=== PATIENT | female | born 1965 | race Two or more races ===

== ENCOUNTER 2019-10-14 10:30 | Inpatient (IN) | payer MEDICAID ==
[~2019-10-14] VITALS: Ht 170.2 cm; Wt 100.1 kg
[~2019-10-14 10:30] MED LIST: ALBU108A5 IN; ASPI81CH43 PO; ATOR20TA50 PO; CAR3125T PO; DIVA1TAB58 PO; FAM20T PO; IPRIH INH; PRED20TA2 PO; QUET100T46 PO
[2019-10-14] MEDS ORDERED: IPRATROPIUM BROM 0.5 MG/2.5ML INH SOL HHN ONE (11:00)
[2019-10-14] MEDS ORDERED: ALBUTEROL SULF 2.5 MG/0.5ML(0.5%) NEB SOLN HHN ONE (11:00)
[2019-10-14] MEDS ORDERED: methylPREDNISolone SOD SUCC 125 MG/2 ML VL IV ONE (11:00)
[2019-10-14 11:08] LABS: Basophils # (auto) 0 10 ^3/uL (0-0.2); Basophils % (auto) 0.3 % (0.0-2.0); Eosinophils # (auto) 0 10 ^3/uL (0-0.8); Eosinophils % (auto) 0.2 % (0.0-7.0); Hematocrit 45.8 % (36.0-46.0); Hemoglobin 14.7 g/dL (12.2-16.2); Lymphocytes # (auto) 4.9 10 ^3/uL (0.4-5.4); Lymphocytes % (auto) 36.7 % (10.0-50.0); Mean Corpuscular Hemoglobin 27.7 pg (28.0-32.0); Mean Corpuscular Hgb Conc. 32.1 g/dL (32.0-36.0); Mean Corpuscular Volume 86.3 fL (80.0-100.0); Monocytes % (auto) 7.6 % (0.0-12.0); Neutrophils # (auto) 7.4 10 ^3/uL (1.6-8.6); Neutrophils % (auto) 55.2 % (37.0-80.0); Nucleated Red Blood Cells % 0.1 %; Platelet Count (auto) 221 10^3/uL (140-450); Red Blood Cells 5.31 10^6/uL (4.0-5.20); Red Cell Distribution Width 14.6 % (11.8-14.3); White Blood Cell 13.4 10^3/uL (4.4-10.8)
[2019-10-14 11:19] LABS: Urine WBC None Seen /hpf (0 - 5)
[2019-10-14 11:42] LABS: Urine Bacteria FEW /hpf (None Seen); Urine Blood Negative /uL (Negative); Urine Specific Gravity 1.031 (1.001-1.035)
[2019-10-14 11:51] LABS: Albumin 3.6 g/dL (3.4-5.0); Anion Gap 14 (5-15); Blood Urea Nitrogen 23 mg/dL (7-18); Calcium 8.8 mg/dL (8.5-10.1); Carbon Dioxide 19 mmol/L (21-32); Chloride 92 mmol/L (98-107); Potassium 4.8 mmol/L (3.5-5.1); Sodium 125 mmol/L (136-145)
[2019-10-14 12:01] LABS: Alanine Aminotransferase 42 U/L (13-56); Alkaline Phosphatase 71 U/L (45-117); Aspartate Aminotransferase 18 U/L (15-37); Bilirubin, Total 0.7 mg/dL (0.2-1.0); GFR African American 48 mL/min; GFR Non-African American 40 mL/min; Total Protein 7.3 g/dL (6.4-8.2)
[2019-10-14 12:17] LABS: Glucose 827 mg/dL (74-106)
[2019-10-14] MEDS ORDERED: InsuLIN R (HUMAN) 100 UNITS in SODIUM CHL 0.9% 99 ML IV SCH (12:26)
[2019-10-14] MEDS ORDERED: InsuLIN REG 1unit/0.01ml Soln (100units/ml) IV ONE ×2 (12:30→14:45)
[2019-10-14] MEDS ORDERED: DEXTROSE (50%) 50ML SYRG IV PRN ×2 (12:30→15:15)
[2019-10-14] MEDS: ACCU-CHEK COMFORT CURVE STRIP VI SCH ×4 (13:16→21:53)
[2019-10-14] MEDS ORDERED: NITROGLYCERIN 0.4 MG SL TAB SL PRN (14:15)
[2019-10-14] MEDS ORDERED: MORPHINE SULF INJ 2 MG/ML SYRINGE 1ML IV PRN (14:15)
[2019-10-14] MEDS ORDERED: DOXYCYCLINE 100MG/250ML 250 ML IV SCH (15:15)
[2019-10-14] MEDS ORDERED: ACETAMINOPHEN 500 MG TAB PO PRN (15:15)
[2019-10-14] MEDS ORDERED: INSULIN LANTUS (GLARGINE) 1 /0.01ml (100units/ml) SC ONE (15:15)
[2019-10-14] MEDS ORDERED: ALBUTEROL SULF 2.5 MG/0.5ML(0.5%) NEB SOLN NEB PRN (15:15)
[2019-10-14] MEDS ORDERED: PROMETHAZINE HCL 25 MG/ML 1ML IV PRN (15:15)
[2019-10-14] MEDS ORDERED: LACTULOSE 20Gm/30ML SOLN PO PRN (15:15)
[2019-10-14] MEDS: SODIUM CHLORIDE 0.9% 1,000 ML IV SCH (15:37)
[2019-10-14] MEDS: methylPREDNISolone SOD SUCC 40 MG/ML VL IV SCH (15:49)
[2019-10-14 16:38] LABS: Amylase 18 U/L (25-115); Lipase 83 U/L (73-393)
[2019-10-14] MEDS: InsuLIN REG 1unit/0.01ml Soln (100units/ml) SC SCH ×2 (16:42→22:04)
[2019-10-14] MEDS: IPRATROPIUM BROM 0.5 MG/2.5ML INH SOL NEB SCH (18:24)
[2019-10-14] MEDS: ALBUTEROL SULF 2.5 MG/0.5ML(0.5%) NEB SOLN NEB SCH (18:25)
[2019-10-14 18:51] VITALS: BP 115/73
[2019-10-14 22:00] VITALS: BP 118/56
[2019-10-14] MEDS: FAMOTIDINE 20 MG TAB PO SCH (22:00)
[2019-10-14] MEDS: DOXYCYCLINE 100 MG TAB/CAP PO SCH (22:05)
[2019-10-14] MEDS: INSULIN LANTUS (GLARGINE) 1 /0.01ml (100units/ml) SC SCH (22:05)
[2019-10-14 22:41] VITALS: BP 118/79
[2019-10-15] MEDS: ACCU-CHEK COMFORT CURVE STRIP VI SCH ×6 (00:02→21:26)
[2019-10-15] MEDS: InsuLIN REG 1unit/0.01ml Soln (100units/ml) SC SCH ×6 (00:03→21:34)
[2019-10-15] MEDS: traMADol HCL 50 MG TAB PO PRN ×2 (00:03→21:30)
[2019-10-15] MEDS: TEMAZEPAM 15 MG CAP PO PRN ×2 (00:03→21:29)
[2019-10-15] MEDS: ALBUTEROL SULF 2.5 MG/0.5ML(0.5%) NEB SOLN NEB SCH ×4 (00:16→19:53)
[2019-10-15] MEDS: IPRATROPIUM BROM 0.5 MG/2.5ML INH SOL NEB SCH ×4 (00:16→19:53)
[2019-10-15] MEDS: methylPREDNISolone SOD SUCC 40 MG/ML VL IV SCH ×2 (03:30→16:32)
[2019-10-15] MEDS: SODIUM CHLORIDE 0.9% 1,000 ML IV SCH ×3 (03:30→21:10)
[2019-10-15 05:00] VITALS: BP 121/74
[2019-10-15] MEDS: INSULIN LANTUS (GLARGINE) 1 /0.01ml (100units/ml) SC SCH ×2 (05:58→22:34)
[2019-10-15 09:00] VITALS: BP 148/76
[2019-10-15] MEDS: DOXYCYCLINE 100 MG TAB/CAP PO SCH ×2 (09:02→21:27)
[2019-10-15] MEDS: ENOXAPARIN SOD 40 MG/0.4 ML SYRINGE SC SCH (09:03)
[2019-10-15] MEDS: FAMOTIDINE 20 MG TAB PO SCH ×2 (09:03→21:26)
[2019-10-15 11:30] LABS: Basophils # (auto) 0 10 ^3/uL (0-0.2); Basophils % (auto) 0.1 % (0.0-2.0); Eosinophils # (auto) 0 10 ^3/uL (0-0.8); Hematocrit 41.8 % (36.0-46.0); Hemoglobin 13.5 g/dL (12.2-16.2); Lymphocytes # (auto) 1.7 10 ^3/uL (0.4-5.4); Lymphocytes % (auto) 9.4 % (10.0-50.0); Mean Corpuscular Hemoglobin 27.1 pg (28.0-32.0); Mean Corpuscular Hgb Conc. 32.3 g/dL (32.0-36.0); Mean Corpuscular Volume 84.1 fL (80.0-100.0); Monocytes # (auto) 0.7 10 ^3/uL (0-1.3); Monocytes % (auto) 3.7 % (0.0-12.0); Neutrophils # (auto) 15.5 10 ^3/uL (1.6-8.6); Neutrophils % (auto) 86.8 % (37.0-80.0); Platelet Count (auto) 220 10^3/uL (140-450); Red Blood Cells 4.97 10^6/uL (4.0-5.20); Red Cell Distribution Width 14.5 % (11.8-14.3); White Blood Cell 17.8 10^3/uL (4.4-10.8)
[2019-10-15 13:00] VITALS: BP 134/75
[2019-10-15 20:00] VITALS: BP 133/82
[2019-10-15 22:00] VITALS: BP 133/82
[2019-10-16] MEDS: ACCU-CHEK COMFORT CURVE STRIP VI SCH ×7 (00:42→23:55)
[2019-10-16] MEDS: InsuLIN REG 1unit/0.01ml Soln (100units/ml) SC SCH ×7 (00:43→23:55)
[2019-10-16] MEDS: IPRATROPIUM BROM 0.5 MG/2.5ML INH SOL NEB SCH ×4 (00:51→19:08)
[2019-10-16] MEDS: ALBUTEROL SULF 2.5 MG/0.5ML(0.5%) NEB SOLN NEB SCH ×4 (00:51→19:08)
[2019-10-16] MEDS: methylPREDNISolone SOD SUCC 40 MG/ML VL IV SCH ×2 (03:35→15:40)
[2019-10-16 05:00] VITALS: BP 131/76
[2019-10-16 05:48] LABS: Basophils # (auto) 0 10 ^3/uL (0-0.2); Basophils % (auto) 0.2 % (0.0-2.0); Eosinophils # (auto) 0 10 ^3/uL (0-0.8); Hematocrit 38.8 % (36.0-46.0); Hemoglobin 12.5 g/dL (12.2-16.2); Lymphocytes # (auto) 3.9 10 ^3/uL (0.4-5.4); Lymphocytes % (auto) 24.1 % (10.0-50.0); Mean Corpuscular Hemoglobin 27.3 pg (28.0-32.0); Mean Corpuscular Hgb Conc. 32.1 g/dL (32.0-36.0); Mean Corpuscular Volume 85.1 fL (80.0-100.0); Monocytes # (auto) 0.9 10 ^3/uL (0-1.3); Monocytes % (auto) 5.9 % (0.0-12.0); Neutrophils # (auto) 11.3 10 ^3/uL (1.6-8.6); Neutrophils % (auto) 69.8 % (37.0-80.0); Nucleated Red Blood Cells % 0.1 %; Platelet Count (auto) 180 10^3/uL (140-450); Red Blood Cells 4.56 10^6/uL (4.0-5.20); Red Cell Distribution Width 14.7 % (11.8-14.3); White Blood Cell 16.1 10^3/uL (4.4-10.8)
[2019-10-16] MEDS: INSULIN LANTUS (GLARGINE) 1 /0.01ml (100units/ml) SC SCH ×2 (06:11→22:41)
[2019-10-16 06:15] LABS: BUN/Creatinine Ratio 15.1; Calcium 8.3 mg/dL (8.5-10.1); Magnesium 2.1 mg/dL (1.6-2.6)
[2019-10-16] MEDS: SODIUM CHLORIDE 0.9% 1,000 ML IV SCH ×2 (08:25→15:42)
[2019-10-16] MEDS: traMADol HCL 50 MG TAB PO PRN (08:50)
[2019-10-16] MEDS: ENOXAPARIN SOD 40 MG/0.4 ML SYRINGE SC SCH (08:50)
[2019-10-16] MEDS: DOXYCYCLINE 100 MG TAB/CAP PO SCH ×2 (08:50→22:40)
[2019-10-16] MEDS: FAMOTIDINE 20 MG TAB PO SCH ×2 (08:50→22:00)
[2019-10-16 09:07] VITALS: BP 143/75
[2019-10-16 13:00] VITALS: BP 154/99
[2019-10-16 17:00] VITALS: BP 160/98
[2019-10-16 21:00] VITALS: BP 133/85
[2019-10-16] MEDS: TEMAZEPAM 15 MG CAP PO PRN (22:39)
[2019-10-16] MEDS ORDERED: glipiZIDE 5 MG TAB PO ONE (23:30)
[2019-10-17] MEDS: IPRATROPIUM BROM 0.5 MG/2.5ML INH SOL NEB SCH ×3 (00:42→11:48)
[2019-10-17] MEDS: ALBUTEROL SULF 2.5 MG/0.5ML(0.5%) NEB SOLN NEB SCH ×3 (00:45→11:48)
[2019-10-17] MEDS: methylPREDNISolone SOD SUCC 40 MG/ML VL IV SCH ×2 (03:50→15:15)
[2019-10-17] MEDS: InsuLIN REG 1unit/0.01ml Soln (100units/ml) SC SCH ×4 (03:50→16:00)
[2019-10-17] MEDS: SODIUM CHLORIDE 0.9% 1,000 ML IV SCH ×2 (03:51→13:10)
[2019-10-17] MEDS: ACCU-CHEK COMFORT CURVE STRIP VI SCH ×4 (03:51→16:00)
[2019-10-17 05:00] VITALS: BP 124/79
[2019-10-17] MEDS: INSULIN LANTUS (GLARGINE) 1 /0.01ml (100units/ml) SC SCH (05:48)
[2019-10-17] MEDS ORDERED: glipiZIDE 5 MG TAB PO SCH (07:00)
[2019-10-17 08:00] VITALS: BP 115/72
[2019-10-17 09:00] VITALS: BP 115/72
[2019-10-17] MEDS: FAMOTIDINE 20 MG TAB PO SCH (10:00)
[2019-10-17] MEDS ORDERED: LORazepam 2MG/ML-1ML VIAL IV ONE (10:00)
[2019-10-17 10:22] LABS: Free T4 (Free Thyroxine) 0.97 ng/dL (0.89-1.76)
[2019-10-17 10:24] LABS: Folate (Folic Acid) 21.53 ng/mL (5.38-24)
[2019-10-17] MEDS: DOXYCYCLINE 100 MG TAB/CAP PO SCH (10:32)
[2019-10-17] MEDS: ENOXAPARIN SOD 40 MG/0.4 ML SYRINGE SC SCH (10:33)
[2019-10-17 13:00] VITALS: BP 141/90
[2019-10-17 15:26] VITALS: BP 141/90
[2019-10-17 16:00] LABS: BUN/Creatinine Ratio 11.2; Calcium 8.8 mg/dL (8.5-10.1); Potassium 3.5 mmol/L (3.5-5.1)
[2019-10-17] MEDS ORDERED: QUEtiapine FUMARATE 100 MG TAB PO SCH (22:00)
== END 2019-10-17 17:19 | disposition home or self-care (01) | DRG 140 ==
LOC: ER 10:30 → TELE 10:31 → TELE-WESTW 18:18
PROVIDERS: ADMIT Internal Medicine; ATTEND Internal Medicine
DX: J44.1 Chronic obstructive pulmonary disease with (acute) exacerbation (principal); N17.0 Acute kidney failure with tubular necrosis; E11.65 Type 2 diabetes mellitus with hyperglycemia; E87.1 Hypo-osmolality and hyponatremia; R19.7 Diarrhea, unspecified; I10 Essential (primary) hypertension; I48.91 Unspecified atrial fibrillation; T38.0X5A Adverse effect of glucocorticoids and synthetic analogues, initial encounter; F31.9 Bipolar disorder, unspecified; Z82.49 Family history of ischemic heart disease and other diseases of the circulatory system; I25.2 Old myocardial infarction; Y92.89 Other specified places as the place of occurrence of the external cause
CPT/HCPCS: 36415; 71045; 72141; 80048; 80053; 81001; 82010; 82150; 82550; 82607; 82746; 82784; 82962; 83036; 83690; 83735; 83880; 84439; 84443; 84484; 85025; 85379; 86334; 86592; 87070; 87205; 93005; 94640; 96365; 96372; 96375; 99291; G0378; J1815

== ENCOUNTER 2020-07-04 10:55 | Emergency (ER) | payer MEDICAID ==
[~2020-07-04] VITALS: Ht 170.2 cm; Wt 94.3 kg
[~2020-07-04 10:55] MED LIST changes: -FAM20T PO; +FAMO20TA10 PO
[2020-07-04 11:25] LABS: Eosinophils # (auto) 0.1 10 ^3/uL (0-0.8); Lymphocytes # (auto) 3.6 10 ^3/uL (0.4-5.4); Monocytes # (auto) 0.7 10 ^3/uL (0-1.3)
[2020-07-04 11:27] LABS: Basophils # (auto) 0.1 10 ^3/uL (0-0.2); Basophils % (auto) 0.6 % (0.0-2.0); Eosinophils % (auto) 1.4 % (0.0-7.0); Hematocrit 38.6 % (36.0-46.0); Hemoglobin 12.6 g/dL (12.2-16.2); Lymphocytes % (auto) 42.3 % (10.0-50.0); Mean Corpuscular Hemoglobin 26.4 pg (28.0-32.0); Mean Corpuscular Hgb Conc. 32.7 g/dL (32.0-36.0); Mean Corpuscular Volume 80.8 fL (80.0-100.0); Monocytes % (auto) 8.2 % (0.0-12.0); Neutrophils % (auto) 47.5 % (37.0-80.0); Platelet Count (auto) 250 10^3/uL (140-450); Red Blood Cells 4.78 10^6/uL (4.0-5.20); Red Cell Distribution Width 14.4 % (11.8-14.3); White Blood Cell 8.4 10^3/uL (4.4-10.8)
[2020-07-04 11:40] LABS: Albumin 3.5 g/dL (3.4-5.0); Anion Gap 4 (5-15); Blood Urea Nitrogen 9 mg/dL (7-18); Calcium 8.5 mg/dL (8.5-10.1); Carbon Dioxide 28 mmol/L (21-32); Chloride 106 mmol/L (98-107); Glucose 103 mg/dL (74-106); Potassium 4.2 mmol/L (3.5-5.1); Sodium 138 mmol/L (136-145)
[2020-07-04 11:45] LABS: Alanine Aminotransferase 26 U/L (13-56); Alkaline Phosphatase 60 U/L (45-117); Aspartate Aminotransferase 15 U/L (15-37); BUN/Creatinine Ratio 11.4; Bilirubin, Total 0.3 mg/dL (0.2-1.0); GFR African American 96 mL/min; GFR Non-African American 80 mL/min; Total Protein 7.7 g/dL (6.4-8.2)
[2020-07-04] MEDS: ASPirin 81 mg TAB PO ONE (12:00)
[2020-07-04 13:07] LABS: INR 1.03 (0.9-1.15); Partial Thromboplastin Time 27.6 sec (23.0-31.2)
[2020-07-04 16:05] VITALS: BP 132/72
== END 2020-07-04 16:11 | disposition left against medical advice (07) ==
LOC: ER 10:55
DX: R07.2 Precordial pain (principal); R00.2 Palpitations; J44.9 Chronic obstructive pulmonary disease, unspecified; E11.9 Type 2 diabetes mellitus without complications; I10 Essential (primary) hypertension; I25.2 Old myocardial infarction; Z79.899 Other long term (current) drug therapy; Z79.82 Long term (current) use of aspirin
CPT/HCPCS: 36415; 71046; 80053; 83735; 83880; 84443; 84484; 85025; 85379; 85610; 85730; 93005

== ENCOUNTER 2020-11-01 11:08 | Inpatient (IN) | payer MEDICAID ==
[~2020-11-01] VITALS: Ht 170.2 cm; Wt 92.1 kg
[~2020-11-01 11:08] MED LIST changes: -QUET100T46 PO; +QUET100T47 PO
[2020-11-01] MEDS ORDERED: SODIUM CHLORIDE 0.9% 500 ML IV ONE (11:30)
[2020-11-01] MEDS ORDERED: ONDANSETRON HCL 4 MG/2 ML VIAL IV ONE (11:30)
[2020-11-01 12:16] LABS: Basophils # (auto) 0.1 10 ^3/uL (0-0.2); Basophils % (auto) 0.7 % (0.0-2.0); Eosinophils # (auto) 0 10 ^3/uL (0-0.8); Eosinophils % (auto) 0.5 % (0.0-7.0); Hematocrit 40.5 % (36.0-46.0); Hemoglobin 13.5 g/dL (12.2-16.2); Lymphocytes # (auto) 3.1 10 ^3/uL (0.4-5.4); Lymphocytes % (auto) 36.5 % (10.0-50.0); Mean Corpuscular Hemoglobin 27.1 pg (28.0-32.0); Mean Corpuscular Hgb Conc. 33.3 g/dL (32.0-36.0); Mean Corpuscular Volume 81.4 fL (80.0-100.0); Monocytes # (auto) 0.6 10 ^3/uL (0-1.3); Monocytes % (auto) 7.1 % (0.0-12.0); Neutrophils # (auto) 4.7 10 ^3/uL (1.6-8.6); Neutrophils % (auto) 55.2 % (37.0-80.0); Nucleated Red Blood Cells % 0.1 %; Red Blood Cells 4.98 10^6/uL (4.0-5.20); Red Cell Distribution Width 14.9 % (11.8-14.3); White Blood Cell 8.6 10^3/uL (4.4-10.8)
[2020-11-01 12:25] LABS: Anion Gap 8 (5-15); Blood Urea Nitrogen 10 mg/dL (7-18); Carbon Dioxide 24 mmol/L (21-32); Chloride 106 mmol/L (98-107); Glucose 128 mg/dL (74-106); Magnesium 2.1 mg/dL (1.6-2.6); Sodium 138 mmol/L (136-145)
[2020-11-01 12:34] LABS: Alanine Aminotransferase 34 U/L (13-56); Alkaline Phosphatase 66 U/L (45-117); Aspartate Aminotransferase 21 U/L (15-37); BUN/Creatinine Ratio 11.6; Bilirubin, Total 0.4 mg/dL (0.2-1.0); GFR African American 87 mL/min; GFR Non-African American 72 mL/min; Total Protein 8.1 g/dL (6.4-8.2)
[2020-11-01 13:07] LABS: Urine Bacteria FEW /hpf (None Seen); Urine Blood Negative /uL (Negative); Urine Specific Gravity 1.011 (1.001-1.035); Urine WBC 3 /hpf (0 - 5)
[2020-11-01] MEDS ORDERED: ONDANSETRON HCL 4 MG/2 ML VIAL IV PRN (13:30)
[2020-11-01] MEDS ORDERED: ACETAMINOPHEN 325 MG TAB PO PRN (13:30)
[2020-11-01] MEDS ORDERED: NITROGLYCERIN 0.4 MG SL TAB SL PRN (13:30)
[2020-11-01] MEDS ORDERED: HYDROcodone-ACET 5/325MG TAB PO PRN (13:30)
[2020-11-01] MEDS ORDERED: MORPHINE SULFATE INJECTION 2 MG/ML SYRG IV PRN (13:30)
[2020-11-01] MEDS ORDERED: METF-370 PO (16:15)
[2020-11-01] MEDS ORDERED: HYDR-4072 PO (16:15)
[2020-11-01] MEDS ORDERED: diazePAM 2 MG TAB PO PRN (16:15)
[2020-11-01 17:00] VITALS: BP 156/92
[2020-11-01] MEDS: MORPHINE SULFATE INJECTION 2 MG/ML SYRG IV PRN (18:18)
[2020-11-01 20:37] VITALS: BP 145/91
[2020-11-01] MEDS: CARVEDILOL 3.125 MG TAB PO SCH (21:20)
[2020-11-01] MEDS: FAMOTIDINE 20 MG TAB PO SCH (21:22)
[2020-11-01] MEDS ORDERED: ATORVASTATIN 20 MG TAB PO SCH (22:00)
[2020-11-01] MEDS ORDERED: QUEtiapine FUMARATE 100 MG TAB PO SCH (22:00)
[2020-11-02 04:36] VITALS: BP 104/60
[2020-11-02] MEDS: FAMOTIDINE 20 MG TAB PO SCH (08:43)
[2020-11-02] MEDS: CARVEDILOL 3.125 MG TAB PO SCH (08:44)
[2020-11-02 09:00] VITALS: BP 121/77
[2020-11-02] MEDS ORDERED: ASPirin 81 mg TAB PO SCH (10:00)
[2020-11-02] MEDS: MORPHINE SULFATE INJECTION 2 MG/ML SYRG IV PRN (16:29)
[2020-11-02 17:17] VITALS: BP 147/98
[2020-11-02 18:05] VITALS: BP 147/98
== END 2020-11-02 18:35 | disposition home or self-care (01) | DRG 111 ==
LOC: ER 11:08 → TELE 13:20 → TELE-EAST 15:42
PROVIDERS: ADMIT Internal Medicine; ATTEND Internal Medicine
DX: H81.10 Benign paroxysmal vertigo, unspecified ear (principal); E11.9 Type 2 diabetes mellitus without complications; H81.20 Vestibular neuronitis, unspecified ear; F31.9 Bipolar disorder, unspecified; I25.10 Atherosclerotic heart disease of native coronary artery without angina pectoris; I10 Essential (primary) hypertension; Z20.822 Contact with and (suspected) exposure to COVID-19; E78.5 Hyperlipidemia, unspecified; E66.9 Obesity, unspecified; F12.90 Cannabis use, unspecified, uncomplicated; R00.2 Palpitations; J44.9 Chronic obstructive pulmonary disease, unspecified; R07.89 Other chest pain; T50.Z95A Adverse effect of other vaccines and biological substances, initial encounter; Z82.49 Family history of ischemic heart disease and other diseases of the circulatory system; Z68.31 Body mass index [BMI] 31.0-31.9, adult; Z86.73 Personal history of transient ischemic attack (TIA), and cerebral infarction without residual deficits; Y92.89 Other specified places as the place of occurrence of the external cause
CPT/HCPCS: 36415; 70450; 70551; 71046; 80053; 81001; 83735; 84484; 85025; 85049; 85379; 87426; 93005; 93306; 96361; 96374; 96375; 99291; G0378; J2405

== ENCOUNTER → 2020-12-07 | Outpatient (CLI) | payer MEDICAID ==
[~2020-12-07] MED LIST changes: +HYDR-4072 PO; +METF-370 PO; +QUET100T46 PO; -QUET100T47 PO
[2020-12-07 14:16] LABS: Urine Bacteria FEW /hpf (None Seen); Urine Blood Negative /uL (Negative); Urine Specific Gravity 1.014 (1.001-1.035); Urine WBC 1 /hpf (0 - 5)
[2020-12-07 14:24] LABS: BUN/Creatinine Ratio 14.7; Potassium 4.4 mmol/L (3.5-5.1)
== END | disposition home or self-care (01) ==
LOC: LAB 13:47
PROVIDERS: ATTEND Internal Medicine
DX: I10 Essential (primary) hypertension (principal); E11.42 Type 2 diabetes mellitus with diabetic polyneuropathy
CPT/HCPCS: 36415; 80048; 81001; 82043; 82306; 83036

== ENCOUNTER → 2022-06-19 | Outpatient (CLI) | payer MEDICAID ==
[~2022-06-19] MED LIST changes: -QUET100T46 PO; +QUET100T47 PO
[2022-06-19 09:31] LABS: Basophils # (auto) 0 10 ^3/uL (0-0.2); Basophils % (auto) 0.4 % (0.0-2.0); Eosinophils # (auto) 0.2 10 ^3/uL (0-0.8); Red Cell Distribution Width 14.5 % (11.8-14.3); White Blood Cell 10.1 10^3/uL (4.4-10.8)
[2022-06-19 09:32] LABS: Eosinophils % (auto) 1.6 % (0.0-7.0); Hematocrit 39.4 % (36.0-46.0); Hemoglobin 13.1 g/dL (12.2-16.2); Lymphocytes # (auto) 4.6 10 ^3/uL (0.4-5.4); Lymphocytes % (auto) 45.1 % (10.0-50.0); Mean Corpuscular Hgb Conc. 33.3 g/dL (32.0-36.0); Monocytes # (auto) 0.7 10 ^3/uL (0-1.3); Monocytes % (auto) 6.9 % (0.0-12.0); Neutrophils # (auto) 4.7 10 ^3/uL (1.6-8.6); Nucleated Red Blood Cells % 0.1 %; Red Blood Cells 4.87 10^6/uL (4.0-5.20)
[2022-06-19 09:35] LABS: Urine Bacteria FEW /hpf (None Seen); Urine Blood Negative /uL (Negative); Urine Specific Gravity 1.016 (1.001-1.035); Urine WBC <1 /hpf (0 - 5)
[2022-06-19 10:36] LABS: Albumin 3.6 g/dL (3.4-5.0); Potassium 4.2 mmol/L (3.5-5.1)
[2022-06-19 10:46] LABS: BUN/Creatinine Ratio 14.6; Bilirubin, Total 0.3 mg/dL (0.2-1.0); Calcium 8.9 mg/dL (8.5-10.1); Total Protein 7.5 g/dL (6.4-8.2)
== END | disposition home or self-care (01) ==
LOC: LAB 09:14
PROVIDERS: ATTEND Internal Medicine
DX: E11.22 Type 2 diabetes mellitus with diabetic chronic kidney disease (principal); N18.9 Chronic kidney disease, unspecified
CPT/HCPCS: 36415; 80053; 80061; 81001; 82043; 82306; 82607; 83036; 84443; 85025

== ENCOUNTER → 2022-06-20 | Outpatient (CLI) | payer MEDICAID | END | disposition home or self-care (01) | LOC: LAB 13:38 | PROVIDERS: ATTEND Internal Medicine | DX: E11.22 Type 2 diabetes mellitus with diabetic chronic kidney disease (principal); N18.9 Chronic kidney disease, unspecified | CPT/HCPCS: 82274 ==

== ENCOUNTER 2024-01-04 06:30 | Emergency (ER) | payer MEDICAID ==
[~2024-01-04] VITALS: Ht 170.2 cm; Wt 88.1 kg
[~2024-01-04 06:30] MED LIST changes: -CAR3125T PO; +CARV-214 PO
[2024-01-04] MEDS ORDERED: PRED15SO33 PO (07:02)
[2024-01-04] MEDS ORDERED: AUG875T PO (07:02)
[2024-01-04 07:26] VITALS: PULSE 103; RESP 17; O2SAT 95
[2024-01-04] MEDS: cefTRIAXone 1GM/50ML D5W 50 ML IV ONE (07:42)
[2024-01-04] MEDS: DexAMETHasone SOD PHOS 10MG/1ML VIAL INJ IV ONE (07:42)
[2024-01-04] MEDS: KETOROLAC TROMETH 30 MG/ML 1ML VIAL IV ONE (07:42)
[2024-01-04 08:00] VITALS: TEMP 98; O2SAT 95
[2024-01-04] MEDS ORDERED: AMOX200S PO (08:11)
[2024-01-04] MEDS ORDERED: IBUP100S11 PO (08:11)
[2024-01-04 08:37] VITALS: BP 140/101; PULSE 90; RESP 19
[2024-01-04] MEDS: ONDANSETRON HCL 4 MG/2 ML VIAL IV ONE (08:37)
[2024-01-04] MEDS: MORPHINE SULFATE 4 MG/ML SYR/VIAL IV ONE (08:37)
== END 2024-01-04 09:13 | disposition home or self-care (01) ==
LOC: ER 06:30
DX: J36 Peritonsillar abscess (principal); F12.90 Cannabis use, unspecified, uncomplicated; J44.9 Chronic obstructive pulmonary disease, unspecified; E11.9 Type 2 diabetes mellitus without complications; I10 Essential (primary) hypertension; E78.5 Hyperlipidemia, unspecified; I25.2 Old myocardial infarction; Z79.84 Long term (current) use of oral hypoglycemic drugs; Z79.899 Other long term (current) drug therapy
CPT/HCPCS: 96365; 96375; 99284; J0696; J1100; J1885; J2270; J2405; 96374

== ENCOUNTER 2024-01-05 06:07 | Emergency (ER) | payer MEDICAID ==
[~2024-01-05] VITALS: Ht 170.2 cm; Wt 88.1 kg
[~2024-01-05 06:07] MED LIST changes: +AMOX200S PO; +IBUP100S11 PO; +PRED15SO33 PO
[2024-01-05 06:24] VITALS: BP 141/86; PULSE 104; RESP 16; TEMP 98.6; O2SAT 97
[2024-01-05] MEDS: cefTRIAXone SOD 1,000 MG VL IM ONE (07:07)
[2024-01-05] MEDS: DexAMETHasone SOD PHOS 10MG/1ML VIAL INJ IM ONE (07:09)
[2024-01-05] MEDS: KETOROLAC TROMETH 60MG/2ML VIAL IM ONE (07:09)
== END 2024-01-05 07:16 | disposition home or self-care (01) ==
LOC: ER 06:07
DX: J36 Peritonsillar abscess (principal); I10 Essential (primary) hypertension; E11.9 Type 2 diabetes mellitus without complications; I25.2 Old myocardial infarction; J44.9 Chronic obstructive pulmonary disease, unspecified; E78.5 Hyperlipidemia, unspecified; F15.90 Other stimulant use, unspecified, uncomplicated; Z86.73 Personal history of transient ischemic attack (TIA), and cerebral infarction without residual deficits; Z79.899 Other long term (current) drug therapy
CPT/HCPCS: 96372; 99284; J0696; J1100; J1885

== ENCOUNTER → 2024-01-29 | Outpatient (CLI) | payer MEDICAID | END | disposition home or self-care (01) | LOC: XYW 10:59 | PROVIDERS: ATTEND Internal Medicine | DX: R07.9 Chest pain, unspecified (principal) | CPT/HCPCS: 93306 ==

== ENCOUNTER → 2024-04-06 | Outpatient (CLI) | payer MEDICAID ==
[~2024-04-06] VITALS: Ht 170.2 cm; Wt 89.4 kg
[2024-04-06] MEDS: REGADENOSON 0.4 MG/5 ML SYRG IV ONE ×2 (09:40→09:42)
--- NOTE | 2024-04-06 13:43 | DVHSR ---
APPROVED REPORT Exam: Nuclear Stress Test BMI: 0 Stress Test Details HR Max Heart Rate (APMHR): 160.927268 bpm Target HR (85% APMHR): 136.818562 bpm BP ECG Stress ECG Conclusion Resting ECG shows normal sinus rhythm. At peak stress level no dynamic EKG changes was noted to sugg est ischemia. Resting images shows near homogeneous uptake of radioactive tracer throughout the myocardium without evidence of myocardial infarction. Stress images shows near homogeneous uptake of radioactive tracer throughout the myocardium without e vidence of myocardial ischemia. Well-preserved left ventricular systolic function at 67%. Impression: Negative stress test ischemia, low risk study NM EXAM: Myocardial Perfusion REST/STRESS Imaging Protocol: Rest Tc-99m/Stress Tc-99m 1 day Resting Data Rest SPECT myocardial perfusion imaging was performed in supine position 60 minutes following the int ravenous injection of 12.5 mCi of Tc-99m Sestamibi. Time of rest injection: 0830 Time of rest imagin Administration Route: IV Administration Site: Right AC Pharmacologic Stress Pharmacologic stress test was performed by injecting Regadenoson 0.4 mg IV push followed by the intra venous injection of 33 mCi of Tc-99m Sestamibi. Time of stress injection: 0945 Time of stress imagin Administration Route: IV Administration Site: Right AC Gated Stress SPECT was performed 60 minutes after stress injection. The images were gated to evaluate regional wall motion and calculate left ventricular ejection fracti on. Stress only was performed in the Supine position. Nuclear Conclusion ECG Findings: negative for ischemia Clinical Findings: negative for ischemia Nuclear Findings: negative for ischemia Exercise Capacity: not assessed Left Ventricular Function: normal Risk Study: low Resting ECG shows normal sinus rhythm. At peak stress level no dynamic EKG changes was noted to sugg est ischemia. Resting images shows near homogeneous uptake of radioactive tracer throughout the myocardium without evidence of myocardial infarction. Stress images shows near homogeneous uptake of radioactive tracer throughout the myocardium without e vidence of myocardial ischemia. Well-preserved left ventricular systolic function at 67%. Impression: Negative stress test ischemia, low risk study
== END | disposition home or self-care (01) ==
LOC: XYW 07:10
PROVIDERS: ATTEND Internal Medicine
DX: R07.9 Chest pain, unspecified (principal)
CPT/HCPCS: 78452; 93017; A9500; J2785

== ENCOUNTER 2024-12-21 10:34 | Outpatient (CLI) | payer MEDICAID ==
[2024-12-21 10:55] LABS: Urine Protein, UAD Negative (Negative)
== END 2024-12-21 17:00 | disposition home or self-care (01) ==
LOC: LAB 10:34
PROVIDERS: ATTEND Licensed Practical Nurse
DX: N39.0 Urinary tract infection, site not specified (principal)
CPT/HCPCS: 81001; 87086